=== PATIENT | male | born 1960 | race Two or more races ===

== ENCOUNTER 2018-11-13 11:21 | Emergency (ER) | payer BC ==
[~2018-11-13] VITALS: Ht 175.3 cm; Wt 79.4 kg
[2018-11-13] MEDS ORDERED: DEXAMETHASONE SOD PHOS 4 MG/ML VIAL IV ONE (12:00)
[2018-11-13] MEDS ORDERED: IV NORMAL SALINE 1000ML BAG 1,000 ML IV ONE (12:00)
--- NOTE | 2018-11-13 12:00 | EKG ---
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
--- NOTE | 2018-11-13 12:03 | PHYS DOC ---
Past Medical History Past Medical History: Anxiety, Arthritis, Depression, Diabetes-Type II, High Cholesterol, Hypertension Past Surgical History: Tonsillectomy, Other Additional Past Surgical Histo: uvula, hernia repair Additional Information: 1-2 cigarettes daily Alcohol Use: Rarely Drug Use: None Adult General Chief Complaint Chief Complaint: Neck Pain HPI HPI Patient is a 58 year old M who presents with left side chest pain and swelling. Has been going on for a few weeks. He is a smoker and was exposed to asbestos. He had an xray done in the past which was negative. But he says his chest feels like is burning and he has noticed a change in his voice. He does snore very loud and actually had surgery to remove his tonsils and uvula but he still has NELIA. He uses a CPAP. Review of Systems Review of Systems Constitutional: Denies fever or chills Eyes: Denies change in visual acuity, redness, or eye pain HENT: Denies nasal congestion or sore throat Respiratory: Denies cough or shortness of breath Cardiovascular: No additional information not addressed in HPI GI: Denies abdominal pain, nausea, vomiting, bloody stools or diarrhea : Denies dysuria or hematuria Musculoskeletal: Denies back pain or joint pain Integument: Denies rash or skin lesions Neurologic: Denies headache, focal weakness or sensory changes Endocrine: Denies polyuria or polydipsia All other systems were reviewed and found to be within normal limits, except as documented in this note. Current Medications Current Medications Current Medications Medications (Trade) Dose Ordered Sig/[facility] Start Time Stop Time Status Last Admin Dose Admin Dexamethasone Sodium Phosphate (Decadron) 10 mg 1X ONCE 11/13/18 12:00 11/13/18 12:00 DC Sodium Chloride 1,000 ml @ 125 mls/hr 1X ONCE 11/13/18 12:00 11/13/18 12:00 DC Allergies Allergies Allergies Coded Allergies Type Severity Reaction Last Updated Verified No Known Drug Allergies 11/13/18 No Physical Exam Physical Exam Constitutional: Well developed, well nourished, no acute distress, non-toxic appearance. HENT: Normocephalic, atraumatic, bilateral external ears normal, oropharynx moist, no oral exudates, nose normal. Eyes: PERRLA, EOMI, conjunctiva normal, no discharge. Neck: Normal range of motion, no tenderness, supple, no stridor. Cardiovascular:Heart rate regular rhythm, no murmur Lungs & Thorax: Bilateral breath sounds clear to auscultation Abdomen: Bowel sounds normal, soft, no tenderness, no masses, no pulsatile masses. Skin: Warm, dry, no erythema, no rash. Back: No tenderness, no CVA tenderness. Extremities: No tenderness, no cyanosis, no clubbing, ROM intact, no edema. Neurologic: Alert and oriented X 3, normal motor function, normal sensory function, no focal deficits noted. Psychologic: Affect normal, judgement normal, mood normal. Current Patient Data Vital Signs Vital Signs Date Time Temp Pulse Resp B/P (MAP) Pulse Ox O2 Delivery O2 Flow Rate FiO2 11/13/18 11:41 98.3 76 16 143/87 (105) 98 Room Air 98.3 Lab Values Laboratory Tests Test 11/13/18 12:07 11/13/18 12:17 11/13/18 12:29 White Blood Count 6.4 x10^3/uL (4.0-11.0) Red Blood Count 4.31 x10^6/uL (4.30-5.70) Hemoglobin 14.1 g/dL (13.0-17.5) Hematocrit 41.4 % (39.0-53.0) Mean Corpuscular Volume 96 fL (79-100) Mean Corpuscular Hemoglobin 33 pg (25-35) Mean Corpuscular Hemoglobin Concent 34 g/dL (31-37) Red Cell Distribution Width 13.6 % (11.5-14.5) Platelet Count 192 x10^3/uL (140-400) Neutrophils (%) (Auto) 51 % (31-73) Lymphocytes (%) (Auto) 30 % (24-48) Monocytes (%) (Auto) 12 % (0-9) H Eosinophils (%) (Auto) 6 % (0-3) H Basophils (%) (Auto) 1 % (0-3) Neutrophils # (Auto) 3.3 x10^3uL (1.8-7.7) Lymphocytes # (Auto) 1.9 x10^3/uL (1.0-4.8) Monocytes # (Auto) 0.8 x10^3/uL (0.0-1.1) Eosinophils # (Auto) 0.4 x10^3/uL (0.0-0.7) Basophils # (Auto) 0.1 x10^3/uL (0.0-0.2) EO-Nwa-Z-Type Natriuretic Peptide 20 pg/mL (0-124) POC Hemoglobin 13.6 g/dL (14-18) L POC Hematocrit 40 % (37-52) POC Sodium 140 mmol/L (135-145) POC Potassium 3.4 mmol/L (3.5-5.0) L POC Chloride 102 mmol/L (98-110) POC Total CO2 26 mmol/L (23-32) Anion Gap 16 mmol/L (6-14) H POC Blood Urea Nitrogen 19 mg/dL (8-26) POC Creatinine 0.9 mg/dL (0.5-1.4) Glucose Level 161 mg/dL (70-99) H POC Ionized Calcium (Natalya) 1.20 mmol/L (1.13-1.32) POC Troponin I 0.00 ng/ml (<0.08) Laboratory Tests 11/13/18 12:07 Laboratory Tests 11/13/18 12:17 EKG EKG [] Radiology/Procedures Radiology/Procedures [] Course & Med Decision Making Course & Med Decision Making Pertinent Labs and Imaging studies reviewed. (See chart for details) 58 y/o M presents with left side chest pain and left clavicle swelling. No lymph nodes or palpable swelling noted on exam. Check labs, CT chest. EKG: NSR 71 bpm, no St elev or depr, nrml intervals, nrml axis. Labs reassuring. CT chest neg for acute findings. DIscussed CT findings with pt. CP is atypical, HEART score 1, unlikely to be acs. He will follow up with PMD. RI home. Discussed return precautions. Dragon Disclaimer Dragon Disclaimer This electronic medical record was generated, in whole or in part, using a voice recognition dictation system. Departure Departure Impression: Primary Impression: Clavicle enlargement Disposition: HOME, SELF-CARE Condition: GOOD Referrals: UNKNOWN PCP NAME (PCP) MICAELA WASHINGTON MD, CHELSEA MD Nov 13, 2018 12:03
--- NOTE | 2018-11-13 12:20 | RAD ---
EXAM: Chest, single view. HISTORY: Chest pain. COMPARISON: None. FINDINGS: A frontal view the chest is obtained. There is no infiltrate, pleural effusion or pneumothorax. The heart is normal in size. There are few calcified granulomas. IMPRESSION: No acute pulmonary finding. Electronically signed by: Elizabeth Castillo MD (11/13/2018 12:16 PM) [place] [id number]
[2018-11-13 12:22] LABS: BASO # 0.1 x10^3/uL (0.0-0.2); BASO % 1 % (0-3); EOS # 0.4 x10^3/uL (0.0-0.7); EOS % 6 % (0-3); HEMATOCRIT 41.4 % (39.0-53.0); HEMOGLOBIN 14.1 g/dL (13.0-17.5); LYMPH # 1.9 x10^3/uL (1.0-4.8); LYMPH % 30 % (24-48); MEAN CORPUSCULAR HEMOGLOBIN 33 pg (25-35); MEAN CORPUSCULAR HGB CONC 34 g/dL (31-37); MEAN CORPUSCULAR VOLUME 96 fL (79-100); MONO # 0.8 x10^3/uL (0.0-1.1); MONO % 12 % (0-9); NEUT # 3.3 x10^3uL (1.8-7.7); NEUT % 51 % (31-73); PLATELET COUNT 192 x10^3/uL (140-400); RED BLOOD COUNT 4.31 x10^6/uL (4.30-5.70); RED CELL DISTRIBUTION WIDTH 13.6 % (11.5-14.5); WHITE BLOOD COUNT 6.4 x10^3/uL (4.0-11.0)
[2018-11-13 12:32] LABS: CREATININE ISTAT 0.9 mg/dL (0.5-1.4); HEMOGLOBIN ISTAT 13.6 g/dL (14-18); ION CA ISTAT 1.2 mmol/L (1.13-1.32); POTASSIUM ISTAT 3.4 mmol/L (3.5-5.0)
--- NOTE | 2018-11-13 13:40 | RAD ---
EXAM: Chest CT without intravenous contrast. HISTORY: Left chest pain and swelling. TECHNIQUE: Computed tomographic images of the chest were obtained without contrast. Multiplanar reformatting was performed. *One or more of the following individualized dose reduction techniques were utilized for this examination: 1. Automated exposure control. 2. Adjustment of the mA and/or kV according to patient size. 3. Use of iterative reconstruction technique. COMPARISON: None. FINDINGS: The heart is normal in size. The aorta is normal in caliber. There is a standard aortic arch branching pattern. There is mild atherosclerosis involving the coronary arteries. There is slight calcification of the aortic valve. There is no axillary, mediastinal or hilar lymphadenopathy. There is a 3.0 x 1.2 x 0.8 cm left periaortic soft tissue nodule. 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 There is no pneumothorax or pleural effusion. There is no infiltrate or suspicious pulmonary nodule. There is a small cyst or pneumatocele within the right lower lobe. No suspicious osseous lesion is seen. There are degenerative changes involving the visualized cervical spine. There are hypodense lesions within the superior liver, the largest of which measures 1.8 cm within the hepatic dome and is likely a cyst. The gallbladder is contracted. The visualized portions of the pancreas, spleen, adrenal glands and kidneys are unremarkable. IMPRESSION: 1. No acute thoracic finding or finding to correlate with left chest pain and swelling. 2. Hypodense lesions within the liver, the largest of which measures 1.8 cm with attenuation consistent with a cyst. In the absence of known malignancy, the smaller lesion is also likely a cyst. 3. 3.0 cm elongated left periaortic soft tissue nodule along the distal descending thoracic aorta. This is a nonspecific finding which may be an enlarged lymph node or lymphatic in etiology. 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 Electronically signed by: Elizabeth Castillo MD (11/13/2018 1:35 PM) [place] [id number]
[2018-11-13 14:53] VITALS: BP 113/70
== END 2018-11-13 14:59 | disposition home or self-care (01) ==
LOC: ER 11:21
DX: R22.1 Localized swelling, mass and lump, neck (principal); R07.89 Other chest pain; F17.210 Nicotine dependence, cigarettes, uncomplicated; I10 Essential (primary) hypertension; F41.9 Anxiety disorder, unspecified; M19.90 Unspecified osteoarthritis, unspecified site; F32.9 Major depressive disorder, single episode, unspecified; E11.9 Type 2 diabetes mellitus without complications; G47.33 Obstructive sleep apnea (adult) (pediatric); E78.00 Pure hypercholesterolemia, unspecified; Z77.090 Contact with and (suspected) exposure to asbestos; Z90.89 Acquired absence of other organs
CPT/HCPCS: 36415; 71045; 71250; 80047; 83880; 84484; 85025; 93005; 99284

== ENCOUNTER 2019-12-07 11:21 | Emergency (ER) | payer OTHER ==
[~2019-12-07] VITALS: Ht 177.8 cm; Wt 80.0 kg
[~2019-12-07 11:21] MED LIST: CEPH-264 PO; HYDR-3164 PO
[2019-12-07 12:23] VITALS: BP 139/92
[2019-12-07 12:29] LABS: BILIRUBIN,URINE NEGATIVE (NEG); CLARITY,URINE CLEAR; COLOR,URINE YELLOW; NITRITE,URINE NEGATIVE (NEG); PROTEIN,URINE NEGATIVE (NEG-TRACE); UROBILINOGEN,URINE 0.2 mg/dL (0.2 mg/dL)
[2019-12-07 12:54] LABS: BACTERIA,URINE FEW /HPF (0-FEW); RBC,URINE RARE /HPF (0-2); WBC,URINE OCC /HPF (0-4)
[2019-12-07] MEDS ORDERED: ORPH100T PO (14:23)
[2019-12-07] MEDS ORDERED: AMOX1TAB61 PO (14:23)
--- NOTE | 2019-12-07 14:23 | PHYS DOC ---
Past Medical History Past Medical History: Diabetes-Type II Additional Past Surgical Histo: uvulectomy, hernia repair Smoking Status: Former Smoker Alcohol Use: Rarely Drug Use: None Adult General Chief Complaint Chief Complaint: FLANK PAIN HPI HPI Patient is a 59 year old male with a history of kidney stones who presents with back pain that started 3 days ago. He denies any trauma or injury to the region and states the pain "radiates deep into his rib cage". He reports to having a smell in his urine, dark colored urine, and increased urinary frequency, but he denies hematuria or dysuria. He also reports to having a sore throat, cough, cold sweats at night, weakness, and lightheadedness which started about 10 days ago. He was recently seen at [facility] ED for bronchitis and was sent home with a 3-day prescription of Z-quinton. He denies N/V at this time. Denies trauma. Denies rash. Review of Systems Review of Systems Constitutional: Reports fever, chills, and weakness Eyes: Denies redness or eye pain HENT: Reports nasal congestion and sore throat Respiratory: Denies shortness of breath; reports cough Cardiovascular: Denies chest pain or palpitations GI: Denies abdominal pain, nausea, or vomiting : Denies dysuria or hematuria Musculoskeletal: Reports back pain; denies deformity Integument: Denies rash or skin lesions Neurologic: Denies headache, focal weakness or sensory changes; denies loss of bowel/bladder Complete systems were reviewed and found to be within normal limits, except as documented in this note. Family History Family History No pertinent family history. Current Medications Current Medications Current Medications Medications (Trade) Dose Ordered Sig/Juan Start Time Stop Time Status Last Admin Dose Admin Dexamethasone (Decadron) 10 mg 1X ONCE 12/07/19 14:30 12/07/19 14:31 DC 12/07/19 14:43 10 MG Allergies Allergies Allergies Coded Allergies Type Severity Reaction Last Updated Verified No Known Drug Allergies 11/13/18 No Physical Exam Physical Exam Constitutional: Well developed, well nourished, no acute distress, non-toxic appearance HENT: Normocephalic, atraumatic, oropharynx moist, erythema in posterior oropharynx Eyes: PERRL, EOMI, conjunctiva normal, no discharge Neck: Normal range of motion, no tenderness, supple, no meningeal signs Cardiovascular: Heart rate normal, regular rhythm Lungs & Thorax: Bilateral breath sounds clear to auscultation, no wheezing Abdomen: Soft, no tenderness Skin: Warm, dry, no erythema, no rash Back: Tenderness to palpation of left sided paraspinal muscles in region of T4- T10, no CVA tenderness Extremities: No tenderness, ROM intact, no edema Neurologic: Alert and oriented X 3, normal motor function, normal sensory function, no focal deficits noted Psychologic: Affect normal, judgment normal Current Patient Data Vital Signs Vital Signs Date Time Temp Pulse Resp B/P (MAP) Pulse Ox O2 Delivery O2 Flow Rate FiO2 12/07/19 12:23 98.1 70 20 139/92 (108) 96 Room Air 98.1 Lab Values Laboratory Tests Test 12/07/19 11:36 Urine Collection Type Unknown Urine Color Yellow Urine Clarity Clear Urine pH 6.0 Urine Specific [place] 1.020 Urine Protein Negative mg/dL (NEG-TRACE) Urine Glucose (UA) >=1000 mg/dL (NEG) Urine Ketones (Stick) Negative mg/dL (NEG) Urine Blood Negative (NEG) Urine Nitrite Negative (NEG) Urine Bilirubin Negative (NEG) Urine Urobilinogen Dipstick 0.2 mg/dL (0.2 mg/dL) Urine Leukocyte Esterase Negative (NEG) Urine RBC Rare /HPF (0-2) Urine WBC Occ /HPF (0-4) Urine Squamous Epithelial Cells None /LPF Urine Bacteria Few /HPF (0-FEW) EKG EKG [] Radiology/Procedures Radiology/Procedures [] Course & Med Decision Making Course & Med Decision Making Pertinent Lab studies reviewed. (See chart for details) Patient is a 59 year old male with a history of kidney stones who presents with left-sided back pain that started 3 days ago. He denies trauma, numbness, or tingling. He also reports lightheadedness, weakness, cold sweats at night, sore throat, post-nasal drip, and cough, which started 10 days ago. He was seen at [facility] ED for bronchitis and was sent home with Z-Quinton. UA was ordered to rule out pyelonephritis or kidney stone and it was unremarkable. No infectious process noted. No microscopic hematuria. His vital signs have been stable. Location of pain appears more likely secondary to paraspinal muscular pain. Pain addressed. Patient is stable for discharge at this time. He will be given a one time dose of dexamethasone for his pharyngitis and will be sent home with Rx for Augmentin with instructions to take the medications if his symptoms worsen ("Watch and Wait"). He was instructed to apply heat to his back for his pain and he will be sent home with Rx for Orphenadrine. Patient stable for discharge home with outpatient follow-up with PCP. Discussed findings and plan with patient, who acknowledges understanding and agreement. Dragon Disclaimer Dragon Disclaimer This electronic medical record was generated, in whole or in part, using a voice recognition dictation system. Departure Departure Impression: Primary Impression: Back pain Additional Impression: Pharyngitis Disposition: HOME, SELF-CARE Condition: STABLE Referrals: NO PCP (PCP) Patient Instructions: Back Pain, Adult, [id number], Viral and Bacterial Pharyngitis, [id number] Additional Instructions: Hold antibiotics for 48 hours. If symptoms worsen or for fever > 100.3 F after 48 hours then start antibiotics as prescribed. Scripts Orphenadrine Citrate (ORPHENADRINE CITRATE) 100 Mg Tablet.er 100 MG PO BID PRN for MUSCLE PAIN, #14 TAB Prov: PRANAV REESE DO 12/07/19 Amoxicillin/Potassium Clav (AUGMENTIN 875-125 TABLET) 1 Each Tablet 1 TAB PO BID for 7 Days, #14 TAB Prov: PRANAV REESE DO 12/07/19 Problem Qualifiers Primary Impression: Back pain Back pain location: low back pain Chronicity: acute Back pain laterality: left Sciatica presence: without sciatica Qualified Codes: M54.5 - Low back pain Additional Impression: Pharyngitis Pharyngitis/tonsillitis etiology: unspecified etiology Qualified Codes: J02.9 - Acute pharyngitis, unspecified PRANAV REESE DO Dec 07, 2019 14:23
[2019-12-07] MEDS ORDERED: DEXAMETHASONE 4 MG TABLET PO ONE (14:30)
== END 2019-12-07 14:25 | disposition home or self-care (01) ==
LOC: ER 11:21
DX: M54.5 Low back pain (principal); J02.9 Acute pharyngitis, unspecified; R35.0 Frequency of micturition; R42 Dizziness and giddiness; R53.1 Weakness; R61 Generalized hyperhidrosis; R05 Cough; E11.9 Type 2 diabetes mellitus without complications; F17.200 Nicotine dependence, unspecified, uncomplicated; Z90.89 Acquired absence of other organs; Z98.890 Other specified postprocedural states
CPT/HCPCS: 81001; 99283; J8540